=== PATIENT | female | born 2000 | race American Indian/Alaskan Native ===

== ENCOUNTER 2021-07-22 16:42 | Emergency (ER) | payer SELFPAY ==
--- NOTE | 2021-07-22 21:38 | Emergency Department Report ---
ED Psych HPI - General Chief Complaint: Psych Stated Complaint: PSYCHOSIS Time Seen by Provider: 07/22/21 21:19 Source: patient, EMS Mode of arrival: Stretcher - History of Present Illness Initial Comments: Patient is 20 years old female with history of bipolar disorder. Patient brought to the emergency room for mental health evaluation. Patient stated that she is having suicidal thoughts after she has been having trouble with her mother. She stated that she just wanted to . She does not have a plan according to her. She stated that she wanted to get like a deep sleep away from her mother. She denied any auditory or visual hallucination. No homicidal ideation. MD Complaint: suicidal ideation, feels depressed -: This evening Associated Psychiatric Symptoms: depression, suicidal ideation Quality: constant Associated Symptoms: denies other symptoms Treatments Prior to Arrival: none If Self Harm: admits thoughts of - Related Data Allergies Allergy/AdvReac Type Severity Reaction Status Date / Time No Known Allergies Allergy Verified 07/22/21 17:19 ED Review of Systems ROS: Stated complaint: PSYCHOSIS Other details as noted in HPI Comment: All other systems reviewed and negative Constitutional: denies: chills, fever Respiratory: denies: cough, shortness of breath, SOB with exertion, SOB at rest Cardiovascular: denies: chest pain, palpitations Gastrointestinal: denies: abdominal pain, nausea, vomiting Neurological: denies: headache, weakness, numbness, paresthesias, confusion Psychiatric: depression, suicidal thoughts. denies: auditory hallucinations, visual hallucinations, homicidal thoughts ED Physical Exam - General Limitations: No Limitations General appearance: alert, in no apparent distress - Head Head exam: Present: atraumatic, normocephalic, normal inspection - Eye Eye exam: Present: normal appearance - ENT ENT exam: Present: normal exam, normal orophraynx, mucous membranes moist - Neck Neck exam: Present: normal inspection, full ROM. Absent: tenderness, meningismus - Respiratory Respiratory exam: Present: normal lung sounds bilaterally - Cardiovascular Cardiovascular Exam: Present: regular rate, normal rhythm, normal heart sounds - GI/Abdominal GI/Abdominal exam: Present: soft, normal bowel sounds. Absent: distended, tenderness, guarding, rebound, rigid, organomegaly, mass, bruit, pulsatile mass, hernia - Extremities Exam Extremities exam: Present: normal inspection, full ROM, normal capillary refill. Absent: tenderness, pedal edema, joint swelling, calf tenderness - Back Exam Back exam: Present: normal inspection, full ROM. Absent: CVA tenderness (R), CVA tenderness (L) - Neurological Exam Neurological exam: Present: alert, oriented X3, CN II-XII intact, normal gait, reflexes normal. Absent: motor sensory deficit - Psychiatric Psychiatric exam: Absent: homicidal ideation, suicidal ideation - Skin Skin exam: Present: warm, intact, normal color ED Course Vital Signs 07/22/21 07/22/21 07/23/21 17:12 22:36 10:54 Temperature 98.7 F 98.2 F 98.2 F Pulse Rate 113 H 86 110 H Respiratory 20 16 16 Rate Blood Pressure 131/86 102/67 115/58 [Right] O2 Sat by Pulse 98 99 96 Oximetry 07/23/21 07/24/21 07/24/21 20:30 07:53 21:41 Temperature 99.4 F 98.2 F 97.9 F Pulse Rate 106 H 62 70 Respiratory 18 16 18 Rate Blood Pressure 126/74 140/87 117/88 [Right] O2 Sat by Pulse 100 100 98 Oximetry 07/25/21 07/25/21 07/25/21 07:46 23:27 23:28 Temperature 98.4 F 98.6 F Pulse Rate 61 90 Respiratory 16 16 Rate Blood Pressure 133/85 121/90 [Right] O2 Sat by Pulse 96 100 100 Oximetry 07/26/21 09:33 Temperature 97.8 F Pulse Rate 88 Respiratory 19 Rate Blood Pressure 105/80 [Right] O2 Sat by Pulse 100 Oximetry ED Medical Decision Making - Lab Data Result diagrams: 07/23/21 01:29 07/23/21 01:29 Critical care attestation.: If time is entered above; I have spent that time in minutes in the direct care of this critically ill patient, excluding procedure time. ED Disposition Clinical Impression: Suicidal ideation Disposition: [address] [place] [address] Is pt being admited?: No Condition: Stable Referrals: SOLIS GHOSH MD [Primary Care Provider] - 3-5 Days
[2021-07-23] MEDS ORDERED: diphenhydrAMINE 25 MG CAP PO ONE (01:25)
[2021-07-23] MEDS ORDERED: LORazepam 1 MG TAB PO ONE (01:25)
[2021-07-23 01:43] LABS: Basophils # (Auto) 0.1 K/mm3 (0.0-0.1); Basophils % (Auto) 0.9 % (0.0-1.8); Eosinophils % (Auto) 0.5 % (0.0-4.3); Hematocrit 34.6 % (30.3-42.9); Hemoglobin 11.4 gm/dl (10.1-14.3); Lymphocytes # (Auto) 1.6 K/mm3 (1.2-5.4); Lymphocytes % (Auto) 24.3 % (13.4-35.0); Mean Corpuscular HGB Conc 33 % (30-34); Mean Corpuscular Volume 93 fl (79-97); Monocytes # (Auto) 0.8 K/mm3 (0.0-0.8); Monocytes % (Auto) 12.1 % (0.0-7.3); Platelet Count 417 K/mm3 (140-440); Red Blood Count 3.74 M/mm3 (3.65-5.03)
[2021-07-23 01:46] LABS: Red Cell Distribution Width 21.1 % (13.2-15.2)
[2021-07-23 02:02] LABS: Blood Urea Nitrogen 11 mg/dL (7-17); Calcium 9.4 mg/dL (8.4-10.2); Hemolysis Index 4
[2021-07-23 02:03] LABS: BUN/Creatinine Ratio 16
--- NOTE | 2021-07-23 10:55 | Consultation ---
History of Present Illness - Reason for Consult Consult date: 07/23/21 Reason for consult: mental health evaluation - History of Present Psychiatric Illness HPI: Patient is 20 years old female with history of bipolar disorder. Patient brought to the emergency room for mental health evaluation. Patient stated that she is having suicidal thoughts after she has been having trouble with her mother. She stated that she just wanted to . She does not have a plan acc ording to her. She stated that she wanted to get like a deep sleep away from her mother. She denied any auditory or visual hallucination. No homicidal ideation. The patient is a 20 year old female with history of bipolar and depression who presented to the ED with suicidal ideation. The patient was seen today. She is hyperverbal with flight of ideas. She reports getting into an argu ment with her mother and sister yesterday. The patient lacks insight, minimizing the extent of her mental condition " I don't want to take medications, you know that is bad for us." Collateral from patient's mother Renetta Buckley @ [phone]: She states that the patient has a history of Bipolar, depression and that the patient was recently discharge from a [facility] in [place] where she was admitted for 20 days. She reports that the patient has a 6months old baby, and that she also had episode 2 years ago when had her other child. She states the patient is on Zyprexa and that she was recently started on some other psychotropic meds however, she does not know the names of the meds. She states that the patient became irritable yesterday, screaming, yelling and crying, she was not herself. PAST PSYCHIATRIC HISTORY: Diagnoses: Bipolar Suicide attempts or Self-harm behavior: Yes Prior psychiatric hospitalizations: Yes Substance Abuse history: marijuana Previous psychiatric medications tried: Denies Outpatient treatment: Unknown PAST MEDICAL HISTORY: None reported or document Family Psychiatric History: None reported or documented SOCIAL HISTORY Marital Status: Single Living Arrangements: Lives with mother Employment Status: Unemployed Access to guns/weapons: Denies Education:11th grade History of Abuse:Denies Legal History: Denies REVIEW OF SYSTEMS Constitutional: Negative for weight loss ENT: Negative for stridor Respiratory: Negative for cough or hemoptysis All other systems reviewed and are negative MENTAL STATUS EXAMINATION General Appearance and Behavior: Age appropriate, wearing appropriate clothes, cooperative, polite with questioning, good eye contact Cooperation: cooperative Psychomotor Behavior: Psychomotor normal Mood: Depressed, agitated Affect and affective range: congruent with stated mood Thought Process: Circumstantial Thought Content: flight of ideas Speech: Hypervebal Suicidal Ideation: Denies Homicidal Ideation: Denies Hallucination: Denies Delusions: None elicited Impulse Control: Limited Insight and Judgment: Limited Memory: limited Attention:inattentive Orientation: Alert and oriented Diagnoses: Bi[polar disorder Treatment Plan 1013 Start Zyprexa 5mg po daily Depakote 125mg po BID Medical: per primary Sitter: defer to primary Disposition: Recommend acute psychiatric inpatient treatment. Will follow. Thanks Case staffed with Dr. Echevarria Medications and Allergies Medications and Allergies Allergies Allergy/AdvReac Type Severity Reaction Status Date / Time No Known Allergies Allergy Verified 07/22/21 17:19 Mental Status Exam - Vital signs Last Vital Signs Temp 98.2 F 07/22/21 22:36 Pulse 86 07/22/21 22:36 Resp 16 07/22/21 22:36 BP 102/67 07/22/21 22:36 Pulse Ox 99 07/22/21 22:36 Results Result Diagrams: 07/23/21 01:29 07/23/21 01:29 Abnormal lab results 07/23/21 07/23/21 07/23/21 Range/Units 01:29 01:29 01:29 RDW 21.1 H (13.2-15.2) % [place] % (Auto) 12.1 H (0.0-7.3) % Salicylates < 0.3 L (2.8-20.0) mg/dL Acetaminophen 5.0 L (10.0-30.0) ug/mL All other labs normal.
--- NOTE | 2021-07-23 12:35 | Emergency Department Report ---
Blank Doc - Documentation Documentation: S: No events reported overnight O: Vital Signs - 8 hr 07/23/21 10:54 Temperature 98.2 F Pulse Rate 110 H Respiratory 16 Rate Blood Pressure 115/58 [Right] O2 Sat by Pulse 96 Oximetry A: Bipolar disorder P: 1013/awaiting inpatient psych
[2021-07-23] MEDS ORDERED: SODIUM CHLORIDE 0.9% 1000 ML 1,000 ML ONE (20:04)
[2021-07-23] MEDS ORDERED: ZIPRASIDONE MESYLATE 20 MG VIAL IM ONE (20:29)
[2021-07-24 04:54] LABS: Bacteria,Urine 1+ /HPF (Negative); Bilirubin,Urine NEG (Negative); Blood,Urine NEG (Negative); Color,Urine Yellow (Yellow); Mucus,Urine 3+ /HPF; Protein,Urine <15 mg/dL mg/dL (Negative); Urobilinogen,Urine < 2.0 mg/dL (<2.0)
[2021-07-24 04:59] LABS: Amphetamine Screen,Urine Negative; Benzodiazepines Screen,Urine Negative; Cannabinoid Screen,Urine Negative; Cocaine Screen,Urine Negative; Methadone Screen,Urine Negative; Opiate Screen,Urine Negative
[2021-07-24] MEDS: DIVALPROEX DR 125 MG TAB PO SCH ×3 (09:59→23:13)
--- NOTE | 2021-07-24 10:11 | Progress Note ---
Subjective - Reason for Consult Consult date: 07/24/21 Reason for consult: mental health evaluation - Chief Complaint Chief complaint: The patient was seen this morning. She continues to be manic. She is hyperverbal with flight of ideas " I think I'm , I want my baby." REVIEW OF SYSTEMS Constitutional: Negative for weight loss ENT: Negative for stridor Respiratory: Negative for cough or hemoptysis All other systems reviewed and are negative MENTAL STATUS EXAMINATION General Appearance and Behavior: Age appropriate, wearing appropriate clothes, cooperative, polite with questioning, good eye contact Cooperation: cooperative Psychomotor Behavior: Psychomotor normal Mood: Depressed, agitated Affect and affective range: congruent with stated mood Thought Process: Circumstantial Thought Content: flight of ideas Speech: Hypervebal Suicidal Ideation: Denies Homicidal Ideation: Denies Hallucination: Denies Delusions: None elicited Impulse Control: Limited Insight and Judgment: Limited Memory: limited Attention:inattentive Orientation: Alert and oriented Diagnoses: Bi[polar disorder Treatment Plan 1013 Start Zyprexa 5mg po daily Depakote 125mg po BID Medical: per primary Sitter: defer to primary Disposition: Recommend acute psychiatric inpatient treatment. Will follow. Thanks Case staffed with Dr. Echevarria Medications and Allergies Mental Status Exam - Vital signs Last Vital Signs Temp 98.2 F 07/24/21 07:53 Pulse 62 07/24/21 07:53 Resp 16 07/24/21 07:53 BP 140/87 07/24/21 07:53 Pulse Ox 100 07/24/21 07:53
[2021-07-24] MEDS ORDERED: LORazepam 1 MG TAB PO ONE (17:21)
[2021-07-25] MEDS: DIVALPROEX DR 125 MG TAB PO SCH ×2 (11:11→22:20)
--- NOTE | 2021-07-25 11:13 | Progress Note ---
Subjective - Reason for Consult Consult date: 07/25/21 Reason for consult: mental health evaluation - Chief Complaint Chief complaint: The patient was seen this morning. She continues to be manic. She is seen pacing and being hyperverbal. REVIEW OF SYSTEMS Constitutional: Negative for weight loss ENT: Negative for stridor Respiratory: Negative for cough or hemoptysis All other systems reviewed and are negative MENTAL STATUS EXAMINATION General Appearance and Behavior: Age appropriate, wearing appropriate clothes, cooperative, polite with questioning, good eye contact Cooperation: cooperative Psychomotor Behavior: Psychomotor normal Mood: Depressed, agitated Affect and affective range: congruent with stated mood Thought Process: Circumstantial Thought Content: flight of ideas Speech: Hypervebal Suicidal Ideation: Denies Homicidal Ideation: Denies Hallucination: Denies Delusions: None elicited Impulse Control: Limited Insight and Judgment: Limited Memory: limited Attention:inattentive Orientation: Alert and oriented Diagnoses: Bi[polar disorder Treatment Plan 1013 Start Zyprexa 5mg po daily Depakote 250mg po BID Trazodone 50mg po QHS Medical: per primary Sitter: defer to primary Disposition: Recommend acute psychiatric inpatient treatment. Will follow. Thanks Case staffed with Dr. Echevarria Medications and Allergies Mental Status Exam - Vital signs Last Vital Signs Temp 98.4 F 07/25/21 07:46 Pulse 61 07/25/21 07:46 Resp 16 07/25/21 07:46 BP 133/85 07/25/21 07:46 Pulse Ox 96 07/25/21 07:46
[2021-07-25] MEDS ORDERED: traZODone 50 MG TAB PO ONE (11:14)
[2021-07-25] MEDS ORDERED: LORazepam 1 MG TAB PO PRN (11:55)
--- NOTE | 2021-07-25 11:56 | Emergency Department Report ---
Blank Doc - Documentation Documentation: S: Patient reportedly has babbling speech speaking frequently of sexual topics O: Vital Signs - 8 hr 07/25/21 07:46 Temperature 98.4 F Pulse Rate 61 Respiratory 16 Rate Blood Pressure 133/85 [Right] O2 Sat by Pulse 96 Oximetry A: Bipolar disorder P: 1013/awaiting inpatient psych
--- NOTE | 2021-07-25 12:38 | Progress Note ---
Subjective - Reason for Consult Consult date: 07/25/21 - Chief Complaint Chief complaint: The patient was seen this morning. She continues to be manic. She is seen pacing and being hyperverbal. REVIEW OF SYSTEMS Constitutional: Negative for weight loss ENT: Negative for stridor Respiratory: Negative for cough or hemoptysis All other systems reviewed and are negative MENTAL STATUS EXAMINATION General Appearance and Behavior: Age appropriate, wearing appropriate clothes, cooperative, polite with questioning, good eye contact Cooperation: cooperative Psychomotor Behavior: Psychomotor normal Mood: Depressed, agitated Affect and affective range: congruent with stated mood Thought Process: Circumstantial Thought Content: flight of ideas Speech: Hypervebal Suicidal Ideation: Denies Homicidal Ideation: Denies Hallucination: Denies Delusions: None elicited Impulse Control: Limited Insight and Judgment: Limited Memory: limited Attention:inattentive Orientation: Alert and oriented Diagnoses: Bi[polar disorder Treatment Plan 1013 Start Zyprexa 5mg po daily Depakote 250mg po BID Trazodone 50mg po QHS Medical: per primary Sitter: defer to primary Disposition: Recommend acute psychiatric inpatient treatment. Will follow. Thanks Case staffed with Dr. Echevarria Medications and Allergies Mental Status Exam - Vital signs Last Vital Signs Temp 98.4 F 07/25/21 07:46 Pulse 61 07/25/21 07:46 Resp 16 07/25/21 07:46 BP 133/85 07/25/21 07:46 Pulse Ox 96 07/25/21 07:46
[2021-07-25] MEDS: DIVALPROEX DR 250 MG TAB PO SCH (22:20)
[2021-07-26] MEDS: DIVALPROEX DR 250 MG TAB PO SCH (09:33)
[2021-07-26] MEDS: DIVALPROEX DR 125 MG TAB PO SCH (09:33)
[2021-07-26 09:35] VITALS: BP 105/80
--- NOTE | 2021-07-26 11:47 | Event Note ---
Date: 07/26/21 Patient accepted for transfer to [facility]. She is in no acute distress. Vital signs stable.
--- NOTE | 2021-07-26 13:31 | Progress Note ---
Subjective - Reason for Consult Consult date: 07/26/21 Reason for consult: Mental health evaluation - Chief Complaint Chief complaint: The patient was seen this morning. She continues to be manic. She is seen pacing and being hyperverbal. REVIEW OF SYSTEMS Constitutional: Negative for weight loss ENT: Negative for stridor Respiratory: Negative for cough or hemoptysis All other systems reviewed and are negative MENTAL STATUS EXAMINATION General Appearance and Behavior: Age appropriate, wearing appropriate clothes, cooperative, polite with questioning, good eye contact Cooperation: cooperative Psychomotor Behavior: Psychomotor normal Mood: Depressed, agitated Affect and affective range: congruent with stated mood Thought Process: Circumstantial Thought Content: flight of ideas Speech: Hypervebal Suicidal Ideation: Denies Homicidal Ideation: Denies Hallucination: Denies Delusions: None elicited Impulse Control: Limited Insight and Judgment: Limited Memory: limited Attention:inattentive Orientation: Alert and oriented Diagnoses: Bipolar disorder Treatment Plan 1013 Start Zyprexa 5mg po daily Depakote 250mg po BID Trazodone 50mg po QHS Medical: per primary Sitter: defer to primary Disposition: Recommend acute psychiatric inpatient treatment. Will follow. Thanks Case staffed with Dr. Echevarria Medications and Allergies Mental Status Exam - Vital signs Last Vital Signs Temp 97.8 F 07/26/21 09:33 Pulse 88 07/26/21 09:33 Resp 19 07/26/21 09:33 BP 105/80 07/26/21 09:33 Pulse Ox 100 07/26/21 09:33
== END 2021-07-26 15:24 ==
LOC: EEVIPCON 16:42 → ED 16:42
DX: R45.851 Suicidal ideations (principal); Z20.822 Contact with and (suspected) exposure to COVID-19
CPT/HCPCS: 36415; 80048; 80307; 81001; 84703; 85025; 96372; 99285; J3486; J7030; U0003; 80320; 99283; G0480